=== PATIENT | male | born 1965 | race Two or more races ===

== ENCOUNTER 2022-04-05 08:11 | Outpatient (CLI) | payer BC ==
[2022-04-05 08:47] LABS: BASOPHILS % (AUTO) 0.6 % (0-1); EOSINOPHILS # (AUTO) 0.2 X10'3 (0-0.9); EOSINOPHILS % (AUTO) 5.4 % (0-6); HEMATOCRIT 48.3 % (42.0-52.0); HEMOGLOBIN 16.6 g/dl (14.0-17.9); LYMPHOCYTES # (AUTO) 1.1 X10'3 (1.1-4.8); LYMPHOCYTES % (AUTO) 34.5 % (21-51); MEAN CORPUSCULAR HEMOGLOBIN 33.7 PG (27.0-31.0); MEAN CORPUSCULAR HGB CONC 34.4 g/dL (33.0-36.5); MEAN CORPUSCULAR VOLUME 98.1 FL (78-98); MEAN PLATELET VOLUME 6.6 FL (7.4-10.4); MONOCYTES # (AUTO) 0.4 X10'3 (0-0.9); MONOCYTES % (AUTO) 13.5 % (2-12); NEUTROPHILS # (AUTO) 1.5 X10'3 (1.8-7.7); PLATELET COUNT 238 X10'3 (140-440); RED BLOOD COUNT 4.92 X10'6 (4.70-6.10); RED CELL DISTRIBUTION WIDTH 13.3 % (11.5-14.5); WHITE BLOOD COUNT 3.2 X10'3 (4.5-11.0)
[2022-04-05 08:56] LABS: HEMOGLOBIN A1C 5.8 % (4.5-6.2)
[2022-04-05 09:14] LABS: ALANINE AMINOTRANSFERASE 31 U/L (12-78); ALBUMIN 4.1 G/DL (3.4-5.0); ALBUMIN/GLOBULIN RATIO 1.3 (1.1-1.5); ALKALINE PHOSPHATASE 45 IU/L (46-116); ANION GAP 8 (8-16); ASPARTATE AMINO TRANSFERASE 32 U/L (10-37); BILIRUBIN,TOTAL 0.5 MG/DL (0.1-1.0); BLOOD UREA NITROGEN 16 MG/DL (7-18); BUN/CREATININE RATIO 15.1 (5.4-32.0); CALCIUM 8.3 MG/DL (8.5-10.1); CHLORIDE 105 MMOL/L (99-107); CHOLESTEROL 279 MG/DL (0-200); CREATININE 1.06 MG/DL (0.60-1.10); GLUCOSE 113 MG/DL (70-104); HDL CHOLESTEROL 56 MG/DL (35-60); LDL CHOLESTEROL 179 MG/DL (50-100); POTASSIUM 4.6 MMOL/L (3.5-5.1); SODIUM 141 MMOL/L (135-145); TOTAL CARBON DIOXIDE 28.3 MMOL/L (24-32); TOTAL PROTEIN 7.2 G/DL (6.4-8.2); TRIGLYCERIDES 135 MG/DL (20-135); eGFR 73 ML/MIN
== END 2022-04-05 23:59 | disposition home or self-care (01) ==
LOC: LAB 08:11
PROVIDERS: ATTEND Internal Medicine
DX: D70.9 Neutropenia, unspecified (principal); E78.2 Mixed hyperlipidemia; I10 Essential (primary) hypertension; F03.90 Unspecified dementia, unspecified severity, without behavioral disturbance, psychotic disturbance, mood disturbance, and anxiety; F10.10 Alcohol abuse, uncomplicated
CPT/HCPCS: 36415; 80053; 80061; 83036; 84443; 85025

== ENCOUNTER 2022-11-21 08:31 | Outpatient (CLI) | payer BC ==
[2022-11-21 09:41] LABS: BASOPHILS # (AUTO) 0.1 X10'3 (0-0.2); BASOPHILS % (AUTO) 1.4 % (0-1); EOSINOPHILS # (AUTO) 0.2 X10'3 (0-0.9); EOSINOPHILS % (AUTO) 3.9 % (0-6); HEMATOCRIT 48.8 % (42.0-52.0); HEMOGLOBIN 16.7 g/dl (14.0-17.9); LYMPHOCYTES # (AUTO) 1.3 X10'3 (1.1-4.8); LYMPHOCYTES % (AUTO) 30.8 % (21-51); MEAN CORPUSCULAR HEMOGLOBIN 33.3 PG (27.0-31.0); MEAN CORPUSCULAR HGB CONC 34.3 g/dL (33.0-36.5); MEAN CORPUSCULAR VOLUME 97.1 FL (78-98); MEAN PLATELET VOLUME 6.9 FL (7.4-10.4); MONOCYTES # (AUTO) 0.5 X10'3 (0-0.9); NEUTROPHILS # (AUTO) 2.2 X10'3 (1.8-7.7); NEUTROPHILS % (AUTO) 51.9 % (42-75); PLATELET COUNT 251 X10'3 (140-440); RED BLOOD COUNT 5.03 X10'6 (4.70-6.10); WHITE BLOOD COUNT 4.1 X10'3 (4.5-11.0)
[2022-11-21 10:07] LABS: ALANINE AMINOTRANSFERASE 28 U/L (12-78); ALBUMIN 3.8 G/DL (3.4-5.0); ALBUMIN/GLOBULIN RATIO 1.2 (1.1-1.5); ALKALINE PHOSPHATASE 52 IU/L (46-116); ANION GAP 6 (8-16); ASPARTATE AMINO TRANSFERASE 19 U/L (10-37); BILIRUBIN,TOTAL 0.5 MG/DL (0.1-1.0); BLOOD UREA NITROGEN 11 MG/DL (7-18); BUN/CREATININE RATIO 12.1 (5.4-32.0); CALCIUM 8.9 MG/DL (8.5-10.1); CHLORIDE 102 MMOL/L (99-107); CHOLESTEROL 230 MG/DL (0-200); CREATININE 0.91 MG/DL (0.60-1.10); GLUCOSE 115 MG/DL (70-104); HDL CHOLESTEROL 58 MG/DL (35-60); HEMOGLOBIN A1C 5.9 % (4.5-6.2); LDL CHOLESTEROL 135 MG/DL (50-100); POTASSIUM 4.3 MMOL/L (3.5-5.1); SODIUM 138 MMOL/L (135-145); TOTAL CARBON DIOXIDE 29.7 MMOL/L (24-32); TOTAL PROTEIN 7.1 G/DL (6.4-8.2); TRIGLYCERIDES 164 MG/DL (20-135); eGFR 86 ML/MIN
== END 2022-11-21 23:59 | disposition home or self-care (01) ==
LOC: LAB 08:31
PROVIDERS: ATTEND Internal Medicine
DX: I10 Essential (primary) hypertension (principal); E78.2 Mixed hyperlipidemia; D70.9 Neutropenia, unspecified; F10.10 Alcohol abuse, uncomplicated; E03.9 Hypothyroidism, unspecified
CPT/HCPCS: 36415; 80053; 80061; 83036; 84443; 85025

== ENCOUNTER 2023-02-19 08:30 | Outpatient (CLI) | payer BC | END 2023-02-19 23:59 | disposition home or self-care (01) | LOC: RAD 08:30 | PROVIDERS: ATTEND Orthopaedic Surgery | DX: S83.511A Sprain of anterior cruciate ligament of right knee, initial encounter (principal); S83.282A Other tear of lateral meniscus, current injury, left knee, initial encounter; S83.242A Other tear of medial meniscus, current injury, left knee, initial encounter; S83.241A Other tear of medial meniscus, current injury, right knee, initial encounter; M17.0 Bilateral primary osteoarthritis of knee; M25.462 Effusion, left knee; M25.461 Effusion, right knee; M25.561 Pain in right knee; M25.562 Pain in left knee; M23.90 Unspecified internal derangement of unspecified knee; X58.XXXA Exposure to other specified factors, initial encounter; Y93.89 Activity, other specified; Y92.89 Other specified places as the place of occurrence of the external cause; Y99.8 Other external cause status | CPT/HCPCS: 73721 ==

== ENCOUNTER 2023-09-29 09:22 | Inpatient (IN) | payer BC ==
[2023-09-23 14:11] LABS: BASOPHILS # (AUTO) 0.1 X10'3 (0-0.2); BASOPHILS % (AUTO) 1.1 % (0-1); EOSINOPHILS # (AUTO) 0.1 X10'3 (0-0.9); EOSINOPHILS % (AUTO) 1.7 % (0-6); LYMPHOCYTES # (AUTO) 1.4 X10'3 (1.1-4.8); LYMPHOCYTES % (AUTO) 22.5 % (21-51); MEAN CORPUSCULAR HEMOGLOBIN 33.6 PG (27.0-31.0); MEAN CORPUSCULAR HGB CONC 34.5 g/dL (33.0-36.5); MEAN CORPUSCULAR VOLUME 97.4 FL (78-98); MEAN PLATELET VOLUME 6.7 FL (7.4-10.4); MONOCYTES # (AUTO) 0.7 X10'3 (0-0.9); MONOCYTES % (AUTO) 11.1 % (2-12); NEUTROPHILS # (AUTO) 3.9 X10'3 (1.8-7.7); NEUTROPHILS % (AUTO) 63.6 % (42-75); PRE OP HEMATOCRIT 48.9 % (42.0-52.0); PRE OP HEMOGLOBIN 16.9 g/dL (14.0-17.9); PRE OP PLATELET COUNT 253 X10'3 (140-440); PRE OP WHITE BLOOD COUNT 6.2 10'3 (4.8-10.8); RED BLOOD COUNT 5.03 X10'6 (4.70-6.10); RED CELL DISTRIBUTION WIDTH 12.5 % (11.5-14.5)
[2023-09-23 14:52] LABS: ALBUMIN 4.1 G/DL (3.4-5.0); ALBUMIN/GLOBULIN RATIO 1.2 (1.1-1.5); ALKALINE PHOSPHATASE 60 IU/L (46-116); BLOOD UREA NITROGEN 13 MG/DL (7-18); BUN/CREATININE RATIO 12.5 (10.0-20.0); CALCIUM 9.5 MG/DL (8.5-10.1); CHLORIDE 102 MMOL/L (99-107); CREATININE 1.04 MG/DL (0.60-1.10); PRE OP ALT 36 U/L (30-65); PRE OP ANION GAP 7 (8-16); PRE OP AST 20 U/L (10-37); PRE OP BILIRUB, TOTAL 0.5 MG/DL (0.0-1.0); PRE OP GLUCOSE 114 MG/DL (70-104); PRE OP SODIUM 137 MMOL/L (135-145); THYROID STIMULATING HORMONE 3.31 ulU/ml (0.34-4.50); TOTAL CARBON DIOXIDE 27.7 MMOL/L (24-32); TOTAL PROTEIN 7.4 G/DL (6.4-8.2); eGFR 74 ML/MIN
[2023-09-29] VITALS (25 sets, daily range): BP systolic 129–164; BP diastolic 69–103; PULSE 75–99; RESP 14–28; TEMP 97.6–98.4; O2SAT 88–98
[~2023-09-29] VITALS: Ht 170.2 cm; Wt 99.4 kg
[~2023-09-29 09:22] MED LIST: CETI10CA PO; FENU610C; HYDR12.55; LEVO137T2 PO; PRAV10TA39; PSEU120T84 PO; cefazolin 2gm/D5W 100mL 100 ML IV ONE; famotidine 20mg tablet PO ONE; ringers solution, lacted 1,000 ML IV SCH; tranexamic acid 650mg tablet PO ONE; vancomycin 1,500 MG in NS 300ml IV soln IV ONE
--- NOTE | 2023-09-29 11:30 | NUR ---
PT STATES HE BATHED AND USED BACTROBAN OINTMENT FOR THE LAST 5 DAYS PER TOTAL JOINT REPLACEMENT RECOMMENDATIONS. PT STATES HE DID NOT READ THE TOTAL JOINT REPLACEMENT BOOKLET THAT WAS SENT HOME W/HIM. PT DENIES ANY DECREASED SENSATION TO RIGHT LEG. PEDAL/TIBIAL PULSE PALPABLE, 2+. Addendum: 09/29/23 at 1225 by Liza Montgomery RN Amended: Links added.
[2023-09-29] MEDS ORDERED: sugammadex 200mg/2ml injection IV ONE (11:48)
[2023-09-29] MEDS ORDERED: tetracaine 1% (10mg/ml) pres. free inj. ONE (11:48)
[2023-09-29] MEDS ORDERED: dexmedetomidine 200mcg/2ml inj. IV ONE (11:50)
[2023-09-29] MEDS ORDERED: ketorolac trometh. 30mg/ml inj. ONE (12:19)
[2023-09-29] MEDS ORDERED: mineral oil 10ml sterile, topical TP ONE (12:19)
[2023-09-29] MEDS ORDERED: ROPIVAcaine 0.5% (5mg/ml) 30ml vial ONE (12:19)
[2023-09-29] MEDS ORDERED: BUPIVACAINE/MELOXICAM 14 ML VIAL IL ONE ×2 (14:44→18:11)
[2023-09-29] MEDS ORDERED: midazolam 1 mg/ML 2ml injection ONE (14:47)
[2023-09-29] MEDS ORDERED: fentaNYL /PF 50mcg/ml 5ml ampule ONE (14:49)
[2023-09-29] MEDS ORDERED: cloNIDine hcl/PF 100mcg/ml inj ONE (14:52)
[2023-09-29] MEDS ORDERED: naloxone 0.4 mg/ml inj ONE (14:54)
[2023-09-29] MEDS ORDERED: sevoflurane 250ml liquid IH ONE (14:54)
[2023-09-29] MEDS ORDERED: rocuronium 10mg/ml inj IV ONE (14:54)
[2023-09-29] MEDS ORDERED: morphine 4 MG/ML inj SYRINge IV PRN (15:20)
[2023-09-29] MEDS ORDERED: ondansetron/PF 4mg/2ml inj IV PRN ×2 (15:20→17:40)
[2023-09-29] MEDS ORDERED: morphine 2 MG/ML inj. syringe IV PRN (15:20)
[2023-09-29] MEDS ORDERED: proCHLORperazine 10 MG/2 ml inj IV PRN (15:20)
[2023-09-29] MEDS ORDERED: ringers solution, lacted 1,000 ML IV SCH (15:20)
[2023-09-29] MEDS ORDERED: meperidine/PF 25mg/ml syringe IV PRN ×3 (15:20)
[2023-09-29] MEDS ORDERED: acetaminophen 1,000mg/100ml IV 100 ML IV ONE (15:42)
[2023-09-29] MEDS ORDERED: ketamine 50mg/5ml syringe ONE (15:42)
[2023-09-29] MEDS ORDERED: propofol inj 20 ML IV ONE (17:38)
[2023-09-29] MEDS ORDERED: glycopyrrolate 0.2mg/ml inj ONE (17:38)
[2023-09-29] MEDS ORDERED: ondansetron/PF 4mg/2ml inj ONE (17:38)
[2023-09-29] MEDS ORDERED: neostigmine methylsulfate 1 MG/ML 10ml vial ONE (17:38)
[2023-09-29] MEDS ORDERED: dexamethasone sod phosphate 4mg/ml inj. ONE (17:38)
[2023-09-29] MEDS ORDERED: bisacodyl 10mg suppository rectal RC PRN (17:40)
[2023-09-29] MEDS ORDERED: magnesium hydroxide 30ml (MOM) UD suspension PO PRN (17:40)
[2023-09-29] MEDS ORDERED: acetaminophen 325mg tablet PO PRN (17:40)
[2023-09-29] MEDS ORDERED: HYDROmorphone 1 mg/ml syringe IV PRN (17:40)
[2023-09-29] MEDS ORDERED: diphenhydrAMINE 25mg capsule PO PRN ×2 (17:40)
[2023-09-29] MEDS ORDERED: HYDROmorphone inj. 0.5 MG/0.5 ML DISP.SYRIN IV PRN (17:40)
[2023-09-29] MEDS ORDERED: naloxone 0.4 mg/ml inj IV PRN (17:40)
--- NOTE | 2023-09-29 17:40 | NUR ---
Received from OR via HOSPITAL BED TO RR 7, accompanied by Anesthesiologist APRIL and report given by Anesthesiologist. PT PRESENTS ON 10L VIA MASK, VSS. PT HAS TRUMPET IN RIGHT NARE. NO S/S DISTRESS. LR RUNNING THRU PIV. RIGHT KNEE DRESSING CDI WITH WRAP AND ICE IN PLACE, ELEVATED LEG. PEDAL PULSES ARE +2 AND PALPABLE.
--- NOTE | 2023-09-29 17:50 | NUR ---
PT WOKE UP ENOUGH TO PULL OUT TRUMPET AND IS BREATHING BETTER, HE IS ABLE TO MOVE ALL EXTREMITIES.
[2023-09-29] MEDS ORDERED: ipratropium/albuterol 3ml nebule NEB STA (17:51)
--- NOTE | 2023-09-29 19:40 | NUR ---
PT STABLE FOR TRANSFER PER MD ORDERS. REPORT CALLED TO [facility], ONCOMING PRIMARY NURSE. ALL QUESTIONS, COMMENTS, AND CONCERNS WERE ANSWERED AT THIS TIME. PT HAS PERIODS OF APNEA, PATIENT STATES HE IS IN THE PROCESS OF GETTING HIS SLEEP APNEA DIAGNOSED. ORDER RECEIVED FROM DR CHEN FOR BIPAP/CPAP FOR OVERNIGHT WELL CONTINUOS PULSE OXIMETRY. RT AND PRIMARY NURSE WERE IN THE ROOM DURING TRANSFER. PATIENT HOOKED UP TO POST OP VITALS AND VSS. RIGHT KNEE DRESSING REMAINS CDI AND WRAP/ICE IS IN PLACE. CALL LIGHT IN HAND, BLL, 2 RAILS UP. ALL PERSONAL BELONGINGS WERE SENT WITH PATIENT. GLASSES, DENTURES, AND CELL ON BEDSIDE TABLE.
[2023-09-29] MEDS ORDERED: vancomycin/NS 1 GM ADD-VANTAGE 250 ML IV SCH (20:00)
[2023-09-29] MEDS: pseudoephedrine 30mg tablet PO SCH (21:00)
[2023-09-29] MEDS: sennosides 8.6mg tablet PO SCH (21:00)
[2023-09-29] MEDS: acetaminophen 325mg tablet PO SCH (21:29)
[2023-09-29] MEDS: potassium cl 20mEq in 1/2 NS 1,000 ML IV SCH (21:37)
[2023-09-30] VITALS (13 sets, daily range): BP systolic 102–143; BP diastolic 54–88; PULSE 18–107; RESP 16–20; TEMP 97.4–98.6; O2SAT 92–97
[2023-09-30] MEDS: potassium cl 20mEq in 1/2 NS 1,000 ML IV SCH ×3 (00:34→16:09)
[2023-09-30] MEDS: ceFAZolin/D5W- 1GM premix 50 ML IV SCH ×2 (00:34→07:41)
[2023-09-30] MEDS: oxyCODONE IR 5mg (immed. release) tablet PO PRN ×4 (00:37→21:18)
[2023-09-30] MEDS: acetaminophen 325mg tablet PO SCH ×4 (02:42→20:00)
--- NOTE | 2023-09-30 06:29 | NUR ---
Patient in room ORTHO 4012 A. I have received report from ALLY Denise, and had the opportunity to ask questions and assume patient care.
[2023-09-30 06:49] LABS: BASOPHILS % (AUTO) 0.1 % (0-1); EOSINOPHILS % (AUTO) 0 % (0-6); HEMATOCRIT 45.7 % (42.0-52.0); HEMOGLOBIN 15.5 g/dl (14.0-17.9); LYMPHOCYTES # (AUTO) 0.8 X10'3 (1.1-4.8); LYMPHOCYTES % (AUTO) 6.8 % (21-51); MEAN CORPUSCULAR HEMOGLOBIN 33.5 PG (27.0-31.0); MEAN CORPUSCULAR HGB CONC 33.9 g/dL (33.0-36.5); MEAN CORPUSCULAR VOLUME 98.8 FL (78-98); MONOCYTES # (AUTO) 0.6 X10'3 (0-0.9); MONOCYTES % (AUTO) 5.8 % (2-12); NEUTROPHILS # (AUTO) 9.7 X10'3 (1.8-7.7); NEUTROPHILS % (AUTO) 87.3 % (42-75); PLATELET COUNT 239 X10'3 (140-440); RED BLOOD COUNT 4.62 X10'6 (4.70-6.10); RED CELL DISTRIBUTION WIDTH 12.9 % (11.5-14.5); WHITE BLOOD COUNT 11.1 X10'3 (4.5-11.0)
[2023-09-30 07:12] LABS: ANION GAP 9 (8-16); CHLORIDE 102 MMOL/L (99-107); POTASSIUM 4.1 MMOL/L (3.5-5.1); SODIUM 136 MMOL/L (135-145); TOTAL CARBON DIOXIDE 25.4 MMOL/L (24-32)
[2023-09-30] MEDS: atorvastatin 10mg tablet PO SCH (07:46)
[2023-09-30] MEDS: pseudoephedrine 30mg tablet PO SCH ×2 (07:47→21:17)
[2023-09-30] MEDS: levoTHYROXINE 25mcg tablet PO SCH (07:49)
[2023-09-30] MEDS: levoTHYROXINE 112mcg tablet PO SCH (07:50)
[2023-09-30] MEDS: cetirizine 10mg tablet PO SCH (07:52)
[2023-09-30] MEDS: aspirin 325mg tablet PO SCH (07:52)
--- NOTE | 2023-09-30 10:27 | NUR ---
Joint surgery consult: Pt s/p R knee surgery this admit per EMR. Pt/SO seen by FIONA for written/verbal high protein diet ed w/ RD contact information provided. FIONA encouraged pt/SO to contact dietitian's office if further nutrition questions/concerns. Addendum: 09/30/23 at [address] Amended: Links added.
[2023-09-30 13:23] LABS: PRO BRAIN NATRIURETIC PEPTIDE 50 PG/ML (0-125)
--- NOTE | 2023-09-30 19:30 | NUR ---
Patient report given, questions answered & plan of care reviewed with ALLY Wylie.
--- NOTE | 2023-09-30 20:16 | NUR ---
Patient in room ORTHO 4012. I have received report from Gia CANALES and had the opportunity to ask questions and assume patient care.
[2023-09-30] MEDS: sennosides 8.6mg tablet PO SCH (21:18)
[2023-09-30] MEDS ORDERED: mag hydrox/Alum hydrox/simeth 30ml oral suspension PO ONE (22:00)
[2023-10-01] MEDS: potassium cl 20mEq in 1/2 NS 1,000 ML IV SCH (01:40)
[2023-10-01] MEDS: acetaminophen 325mg tablet PO SCH ×2 (02:00→07:42)
[2023-10-01 02:53] VITALS: PULSE 83; RESP 18; O2SAT 98
[2023-10-01] MEDS: oxyCODONE IR 5mg (immed. release) tablet PO PRN ×3 (03:01→13:13)
--- NOTE | 2023-10-01 03:03 | NUR ---
patient observed to be de -sating to 70-80"s reported. earlier in shift. Rt into see patient placed on 5L nc, o2 sats remained 90's during rest of shift. . medicated for pain in knee x2, will continue to monitor
[2023-10-01 06:00] VITALS: BP 135/92; PULSE 88; RESP 20; TEMP 98.1; O2SAT 97
--- NOTE | 2023-10-01 06:06 | NUR ---
Problems reprioritized. Patient report given, questions answered & plan of care reviewed with Patti CANALES.
--- NOTE | 2023-10-01 06:19 | NUR ---
O2 Sat at rest on room air:_88__% If below 89%: Recovery O2 Sat at rest on __5_LPM:_92__%:___% via_nc (mask/nasal cannula, etc..) No further documentation is necessary. If O2 Sat did not drop below 89% on room air,ambulate patient on room air. O2 Sat while ambulating on room air:___% Recovery O2 Sat while ambulating on ___LPM:___% No further documentation is necessary. If patient does not drop below 89% while ambulating, he/she does not qualify for home O2.
[2023-10-01 06:27] LABS: BASOPHILS % (AUTO) 0.7 % (0-1); EOSINOPHILS # (AUTO) 0.1 X10'3 (0-0.9); HEMATOCRIT 42.4 % (42.0-52.0); HEMOGLOBIN 14.1 g/dl (14.0-17.9); LYMPHOCYTES # (AUTO) 1.2 X10'3 (1.1-4.8); LYMPHOCYTES % (AUTO) 26.6 % (21-51); MEAN CORPUSCULAR HGB CONC 33.3 g/dL (33.0-36.5); MEAN CORPUSCULAR VOLUME 99.1 FL (78-98); MEAN PLATELET VOLUME 6.9 FL (7.4-10.4); MONOCYTES # (AUTO) 0.8 X10'3 (0-0.9); MONOCYTES % (AUTO) 19.2 % (2-12); NEUTROPHILS # (AUTO) 2.2 X10'3 (1.8-7.7); NEUTROPHILS % (AUTO) 51.5 % (42-75); PLATELET COUNT 192 X10'3 (140-440); RED BLOOD COUNT 4.28 X10'6 (4.70-6.10); RED CELL DISTRIBUTION WIDTH 12.9 % (11.5-14.5); WHITE BLOOD COUNT 4.3 X10'3 (4.5-11.0)
--- NOTE | 2023-10-01 06:39 | NUR ---
Problems reprioritized. Patient report given, questions answered & plan of care reviewed with Anastasiya CANALES.
--- NOTE | 2023-10-01 06:48 | NUR ---
Patient in room ORTHO 4012. I have received report from Inessa and had the opportunity to ask questions and assume patient care.
[2023-10-01 07:03] LABS: PLATELET ESTIMATE NORMAL; TOTAL CELLS COUNTED 100
[2023-10-01 07:07] VITALS: BP 145/98; PULSE 89; RESP 18; TEMP 98.6; O2SAT 96
[2023-10-01] MEDS: levoTHYROXINE 25mcg tablet PO SCH (07:36)
[2023-10-01] MEDS: levoTHYROXINE 112mcg tablet PO SCH (07:37)
[2023-10-01] MEDS: pseudoephedrine 30mg tablet PO SCH (07:38)
[2023-10-01] MEDS: atorvastatin 10mg tablet PO SCH (07:42)
[2023-10-01] MEDS: cetirizine 10mg tablet PO SCH (07:42)
[2023-10-01 07:46] VITALS: RESP 18; O2SAT 96
--- NOTE | 2023-10-01 07:47 | NUR ---
L eye PERRL, R eye Cloudy from previous injury pt reports no vision out of the R eye. Cloudy in appearance, no noted drainage. R Knee weak due to pain 09/09 pain medication given Addendum: 10/01/23 at 0803 by Chen BERNABE Amended: Links added.
[2023-10-01] MEDS: aspirin 325mg tablet PO SCH (09:28)
[2023-10-01 10:37] VITALS: BP 140/94; PULSE 95; RESP 18; TEMP 97.7; O2SAT 93
[2023-10-01] MEDS ORDERED: acetaminophen 325mg tablet PO PRN (17:40)
== END 2023-10-01 13:10 | disposition home or self-care (01) | DRG 470 ==
LOC: PAS 09:22 → ORTHO 4S 17:43 → OBSVTOIN 17:43
PROVIDERS: ADMIT Orthopaedic Surgery; ATTEND Orthopaedic Surgery
PROC: 8E0YXBZ Computer Assisted Procedure of Lower Extremity (ICD-10-PCS; 2023-09-29)
PROC: 5A09357 Assistance with Respiratory Ventilation, Less than 24 Consecutive Hours, Continuous Positive Airway Pressure (ICD-10-PCS; 2023-09-29)
PROC: 0SRC0L9 Replacement of Right Knee Joint with Medial Unicondylar Synthetic Substitute, Cemented, Open Approach (ICD-10-PCS; principal; 2023-09-29 14:54)
DX: M17.11 Unilateral primary osteoarthritis, right knee (principal); I10 Essential (primary) hypertension; E05.00 Thyrotoxicosis with diffuse goiter without thyrotoxic crisis or storm; G47.33 Obstructive sleep apnea (adult) (pediatric); D72.819 Decreased white blood cell count, unspecified
CPT/HCPCS: Z7506; Z7508; 36415; 71045; 80051; 80053; 82948; 83880; 84443; 85007; 85025; 87081; 94640; 94660; 94760; 97110; 97161; 97530; A4215; A4615; A4618; A6258; A7000; C1713; C1776; G0378; J0131; J0690; J0735; J1100; J1885; J2175; J2250; J2310; J2405; J2704; J2710; J2795; J3010; J3370; J3480; J3490; J7120

== ENCOUNTER 2023-12-25 08:42 | Outpatient (CLI) | payer BC ==
[~2023-12-25 08:42] MED LIST changes: -cefazolin 2gm/D5W 100mL 100 ML IV ONE; -famotidine 20mg tablet PO ONE; -ringers solution, lacted 1,000 ML IV SCH; -tranexamic acid 650mg tablet PO ONE; -vancomycin 1,500 MG in NS 300ml IV soln IV ONE
== END 2023-12-25 23:59 | disposition home or self-care (01) ==
LOC: RAD 08:42
PROVIDERS: ATTEND Family Medicine
DX: M79.89 Other specified soft tissue disorders (principal); M79.9 Soft tissue disorder, unspecified
CPT/HCPCS: 76536

== ENCOUNTER 2024-01-06 16:41 | Outpatient (CLI) | payer BC ==
[2024-01-06 17:21] LABS: BILIRUBIN,URINE NEGATIVE (Neg); CLARITY,URINE CLEAR (Clear); COLOR,URINE YELLOW (Yellow); GLUCOSE, URINE NEGATIVE (Neg); KETONES,URINE NEGATIVE (Neg); LEUKOCYTE ESTERASE ,URINE NEGATIVE (Neg); NITRITES, URINE NEGATIVE (Neg); OCCULT BLOOD,URINE NEGATIVE (Neg); PH,URINE 6.5 (4.8-8.0); PROTEIN,URINE NEGATIVE (Neg); UROBILINOGEN,URINE 0.2 E.U/dL (0.2-1.0)
[2024-01-06 17:24] LABS: BASOPHILS # (AUTO) 0.1 X10'3 (0-0.2); BASOPHILS % (AUTO) 1.5 % (0-1); EOSINOPHILS # (AUTO) 0.1 X10'3 (0-0.9); EOSINOPHILS % (AUTO) 3.2 % (0-6); HEMATOCRIT 48.7 % (42.0-52.0); HEMOGLOBIN 16.5 g/dl (14.0-17.9); LYMPHOCYTES # (AUTO) 1.6 X10'3 (1.1-4.8); LYMPHOCYTES % (AUTO) 36.8 % (21-51); MEAN CORPUSCULAR HEMOGLOBIN 33.1 PG (27.0-31.0); MEAN CORPUSCULAR HGB CONC 33.9 g/dL (33.0-36.5); MEAN CORPUSCULAR VOLUME 97.5 FL (78-98); MEAN PLATELET VOLUME 6.6 FL (7.4-10.4); MONOCYTES # (AUTO) 0.7 X10'3 (0-0.9); MONOCYTES % (AUTO) 14.9 % (2-12); NEUTROPHILS # (AUTO) 1.9 X10'3 (1.8-7.7); NEUTROPHILS % (AUTO) 43.6 % (42-75); PLATELET COUNT 253 X10'3 (140-440); RED BLOOD COUNT 4.99 X10'6 (4.70-6.10); WHITE BLOOD COUNT 4.5 X10'3 (4.5-11.0)
[2024-01-06 17:26] LABS: UA COLLECTION TYPE NON-SPECIFIED
[2024-01-06 18:03] LABS: ALANINE AMINOTRANSFERASE 34 U/L (12-78); ALBUMIN 4.4 G/DL (3.4-5.0); ALBUMIN/GLOBULIN RATIO 1.3 (1.1-1.5); ALKALINE PHOSPHATASE 72 IU/L (46-116); ANION GAP 11 (8-16); ASPARTATE AMINO TRANSFERASE 15 U/L (10-37); BILIRUBIN,TOTAL 0.5 MG/DL (0.1-1.0); BLOOD UREA NITROGEN 17 MG/DL (7-18); CALCIUM 9.6 MG/DL (8.5-10.1); CHLORIDE 104 MMOL/L (99-107); CHOL/HDL RATIO 4.3 (0.00-4.99); CHOLESTEROL 219 MG/DL (0-200); FREE T4 (FREE THYROXINE) 0.96 NG/DL (0.73-1.40); GLUCOSE 111 MG/DL (70-104); HDL CHOLESTEROL 51 MG/DL (35-60); LDL CHOLESTEROL 117 MG/DL (50-100); SODIUM 142 MMOL/L (135-145); THYROID STIMULATING HORMONE 4.39 ulU/ml (0.34-4.50); TOTAL CARBON DIOXIDE 27.2 MMOL/L (24-32); TOTAL PROTEIN 7.8 G/DL (6.4-8.2); TRIGLYCERIDES 167 MG/DL (20-135); eGFR 77 ML/MIN
== END 2024-01-06 23:59 | disposition home or self-care (01) ==
LOC: LAB 16:41
PROVIDERS: ATTEND Family Medicine
DX: Z00.00 Encounter for general adult medical examination without abnormal findings (principal)
CPT/HCPCS: 36415; 80053; 80061; 81003; 84439; 84443; 85025

== ENCOUNTER 2024-01-07 14:56 | Outpatient (CLI) | payer BC | END 2024-01-07 23:59 | disposition home or self-care (01) | LOC: RAD 14:56 | PROVIDERS: ATTEND Family Medicine | DX: I72.8 Aneurysm of other specified arteries (principal); R59.0 Localized enlarged lymph nodes | CPT/HCPCS: 71250 ==

== ENCOUNTER 2025-01-04 06:14 | Day surgery (SDC) | payer BC, OTHER ==
[2024-12-28 13:48] LABS: BASOPHILS # (AUTO) 0.1 X10'3 (0-0.2); BASOPHILS % (AUTO) 1.7 % (0-1); EOSINOPHILS # (AUTO) 0.1 X10'3 (0-0.9); EOSINOPHILS % (AUTO) 2.7 % (0-6); LYMPHOCYTES # (AUTO) 1.2 X10'3 (1.1-4.8); LYMPHOCYTES % (AUTO) 36.3 % (21-51); MEAN CORPUSCULAR HEMOGLOBIN 33.7 PG (27.0-31.0); MEAN CORPUSCULAR HGB CONC 34.6 g/dL (33.0-36.5); MEAN CORPUSCULAR VOLUME 97.4 FL (78-98); MEAN PLATELET VOLUME 6.7 FL (7.4-10.4); MONOCYTES # (AUTO) 0.6 X10'3 (0-0.9); MONOCYTES % (AUTO) 18.9 % (2-12); NEUTROPHILS # (AUTO) 1.3 X10'3 (1.8-7.7); NEUTROPHILS % (AUTO) 40.4 % (42-75); PRE OP HEMATOCRIT 47.6 % (42.0-52.0); PRE OP HEMOGLOBIN 16.5 g/dL (14.0-17.9); PRE OP PLATELET COUNT 282 X10'3 (140-440); PRE OP WHITE BLOOD COUNT 3.2 10'3 (4.8-10.8); RED BLOOD COUNT 4.88 X10'6 (4.70-6.10); RED CELL DISTRIBUTION WIDTH 12.8 % (11.5-14.5)
[2024-12-28 14:11] LABS: ALBUMIN 4.1 G/DL (3.4-5.0); ALBUMIN/GLOBULIN RATIO 1.1 (1.1-1.5); ALKALINE PHOSPHATASE 62 IU/L (46-116); BLOOD UREA NITROGEN 15 MG/DL (7-18); BUN/CREATININE RATIO 17.2 (10.0-20.0); CALCIUM 9.2 MG/DL (8.5-10.1); CHLORIDE 101 MMOL/L (99-107); CREATININE 0.87 MG/DL (0.60-1.10); PRE OP ALT 36 U/L (30-65); PRE OP ANION GAP 7 (8-16); PRE OP AST 32 U/L (10-37); PRE OP BILIRUB, TOTAL 0.5 MG/DL (0.0-1.0); PRE OP GLUCOSE 97 MG/DL (70-104); PRE OP SODIUM 137 MMOL/L (135-145); THYROID STIMULATING HORMONE 1.84 ulU/ml (0.34-4.50); TOTAL CARBON DIOXIDE 28.8 MMOL/L (24-32); TOTAL PROTEIN 7.7 G/DL (6.4-8.2); eGFR 90 ML/MIN
[2024-12-28 14:12] LABS: PRE OP POTASSIUM 4.1 MMOL/L (3.4-5.1)
[2024-12-28 14:27] LABS: PLATELET ESTIMATE NORMAL; TOTAL CELLS COUNTED 100
[~2025-01-04] VITALS: Ht 170.2 cm; Wt 99.1 kg
[2025-01-04] VITALS (26 sets, daily range): BP systolic 116–139; BP diastolic 62–98; PULSE 71–92; RESP 13–18; TEMP 97.9; O2SAT 93–99
[~2025-01-04 06:14] MED LIST changes: -CETI10CA PO; +IBUP-1985 PO; -PRAV10TA39; -PSEU120T84 PO; +ROSU10TA72 PO; +VANCOMYCIN 1GM 200ML H20 (PEG) 200 ML IV ONE; +ceFAZolin 2gm in dextrose, iso 50 ML IV ONE
[2025-01-04] MEDS ORDERED: ROPIVAcaine 0.5% (5mg/ml) 30ml vial ONE ×2 (06:43→09:42)
[2025-01-04] MEDS ORDERED: ketorolac trometh 30MG/ML vial 30 MG/ML VIAL ONE (06:43)
[2025-01-04] MEDS: vancomycin/NS 1 GM ADD-VANTAGE 250 ML X 1 DOSE IV ONE (07:28)
[2025-01-04] MEDS: famotidine 20mg tablet PO ONE (07:28)
[2025-01-04] MEDS: tranexamic acid 650mg tablet PO ONE (07:28)
[2025-01-04] MEDS: ringers solution, lacted 1,000 ML IV SCH (07:28)
[2025-01-04] MEDS: ROPIVAcaine 0.5% (5mg/ml) 30ml vial IJ ONE (08:17)
[2025-01-04] MEDS ORDERED: cloNIDine hcl/PF 100mcg/ml inj ONE (08:56)
[2025-01-04] MEDS ORDERED: sevoflurane 250ml liquid IH ONE (09:02)
[2025-01-04] MEDS ORDERED: midazolam 1 mg/ML 2ml injection ONE (09:15)
[2025-01-04] MEDS ORDERED: fentaNYL /PF 50mcg/ml 5ml ampule ONE (09:16)
[2025-01-04] MEDS ORDERED: 0.9 % SODIUM CHLORIDE 10 ML VIAL ONE (09:42)
[2025-01-04] MEDS ORDERED: LIDOcaine 2% (20mg/ml) 5ml vial ONE (09:42)
[2025-01-04] MEDS ORDERED: rocuronium 10mg/ml inj IV ONE (09:42)
[2025-01-04] MEDS ORDERED: propofol inj 20 ML IV ONE (09:42)
[2025-01-04] MEDS ORDERED: dexamethasone sod phosphate 4mg/ml inj. ONE (09:42)
[2025-01-04] MEDS ORDERED: ondansetron/PF 4mg/2ml inj ONE (09:46)
[2025-01-04] MEDS ORDERED: HYDROmorphone 1 mg/ml syringe IV PRN (11:35)
[2025-01-04] MEDS ORDERED: HYDROmorphone inj. 0.5 MG/0.5 ML DISP.SYRIN IV PRN (11:35)
[2025-01-04] MEDS ORDERED: acetaminophen 325mg tablet PO PRN (11:35)
[2025-01-04] MEDS ORDERED: bisacodyl 10mg suppository rectal RC PRN (11:35)
[2025-01-04] MEDS ORDERED: magnesium hydroxide 30ml (MOM) UD suspension PO PRN (11:35)
[2025-01-04] MEDS ORDERED: diphenhydrAMINE 25mg capsule PO PRN ×2 (11:35)
[2025-01-04] MEDS ORDERED: ondansetron/PF 4mg/2ml inj IV PRN ×2 (11:35→11:40)
[2025-01-04] MEDS ORDERED: oxyCODONE IR 5mg (immed. release) tablet PO PRN ×2 (11:35)
[2025-01-04] MEDS ORDERED: potassium cl 20mEq in 1/2 NS 1,000 ML IV SCH (11:35)
[2025-01-04] MEDS ORDERED: naloxone 0.4 mg/ml inj IV PRN (11:35)
[2025-01-04] MEDS ORDERED: hydrALAZINE 20mg/ml inj. IV PRN (11:40)
[2025-01-04] MEDS ORDERED: meperidine/PF 25mg/ml syringe IV PRN ×3 (11:40)
[2025-01-04] MEDS ORDERED: morphine 4 MG/ML inj SYRINge IV PRN (11:40)
[2025-01-04] MEDS ORDERED: acetaminophen 1,000mg/100ml IV 100 ML IV PRN (11:40)
[2025-01-04] MEDS ORDERED: labetalol 20mg/4ml (5mg/ml) syringe IV PRN (11:40)
[2025-01-04] MEDS ORDERED: morphine 2 MG/ML inj. syringe IV PRN (11:40)
[2025-01-04] MEDS ORDERED: proCHLORperazine 10 MG/2 ml inj IV PRN (11:40)
[2025-01-04] MEDS ORDERED: ringers solution, lacted 1,000 ML IV SCH (11:40)
[2025-01-04] MEDS ORDERED: acetaminophen 325mg tablet PO SCH (14:00)
[2025-01-04] MEDS ORDERED: ceFAZolin/D5W- 1GM premix 50 ML IV SCH (16:00)
[2025-01-04] MEDS ORDERED: vancomycin/NS 1 GM ADD-VANTAGE 250 ML IV SCH (20:00)
[2025-01-04] MEDS ORDERED: sennosides 8.6mg tablet PO SCH (21:00)
[2025-01-05] MEDS ORDERED: aspirin 325mg tablet PO SCH (08:30)
[2025-01-05] MEDS ORDERED: celeCOXIB 100mg capsule PO SCH (20:00)
[2025-01-06] MEDS ORDERED: acetaminophen 325mg tablet PO PRN (18:20)
== END 2025-01-04 16:56 | disposition home or self-care (01) ==
LOC: PRE-OP 06:14
PROVIDERS: ATTEND Orthopaedic Surgery
DX: M17.12 Unilateral primary osteoarthritis, left knee (principal); I10 Essential (primary) hypertension; G47.30 Sleep apnea, unspecified; E78.5 Hyperlipidemia, unspecified; E66.9 Obesity, unspecified; E05.00 Thyrotoxicosis with diffuse goiter without thyrotoxic crisis or storm; H54.7 Unspecified visual loss; Z79.899 Other long term (current) drug therapy; Z79.01 Long term (current) use of anticoagulants; Z87.891 Personal history of nicotine dependence; Z98.890 Other specified postprocedural states; Z79.82 Long term (current) use of aspirin; Z79.890 Hormone replacement therapy; Z68.35 Body mass index [BMI] 35.0-35.9, adult
CPT/HCPCS: 20985; 27447; 36415; 64447; 64999; 80053; 82948; 84443; 85025; 87081; C1713; C1776; J0690; J0735; J1100; J1171; J1885; J2003; J2250; J2405; J2704; J2710; J2795; J3010; J3370; J3372; J3480; J3490; J7030; J7120; Z7506; Z7508; Z7512; 85007; A4615; A7000; A9272; C1758